=== PATIENT | male | born 1965 | race Caucasian/White ===

== ENCOUNTER 2022-05-08 09:18 | Emergency (ER) | payer MEDICAID, OTHER ==
[~2022-05-08] VITALS: Ht 182.9 cm; Wt 83.9 kg
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
[2022-05-08] MEDS ORDERED: ZONI100C79 PO (09:53)
[2022-05-08 09:58] VITALS: BP 127/72
== END 2022-05-08 09:58 | disposition home or self-care (01) ==
LOC: ER FS 09:21
DX: Z76.0 Encounter for issue of repeat prescription (principal)
CPT/HCPCS: 99281

== ENCOUNTER 2022-07-28 16:57 | Emergency (ER) | payer MEDICAID ==
[~2022-07-28] VITALS: Ht 182 cm; Wt 83.0 kg
[~2022-07-28 16:57] MED LIST: ZONI100C79 PO
[2022-07-28] MEDS ORDERED: cefTRIAXone 250 MG/2.5 ML ML IM ONE (17:45)
[2022-07-28] MEDS ORDERED: LIDOCAINE 1% INJ 20 ML VIAL INJ ONE (17:45)
[2022-07-28] MEDS ORDERED: LIDOCAINE 1% INJ 10 ML VIAL ONE (17:45)
[2022-07-28] MEDS ORDERED: AZITHROMYCIN 250 MG TAB (ZITHROMAX) PO ONE (17:46)
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
[2022-07-28 17:58] LABS: BILIRUBIN,URINE NEGATIVE (NEGATIVE); CLARITY,URINE CLEAR; COLOR,URINE YELLOW; GLUCOSE, URINE (UA) NEGATIVE (NEGATIVE); KETONES,URINE NEGATIVE (NEGATIVE); LEUKOCYTE ESTERASE ,URINE TRACE (NEGATIVE); NITRITE,URINE NEGATIVE (NEGATIVE); PROTEIN,URINE NEGATIVE (NEGATIVE)
[2022-07-28] MEDS ORDERED: LIDOCAINE 1% INJ 10 ML VIAL INJ ONE (18:00)
[2022-07-28 18:09] LABS: BACTERIA,URINE TRACE /HPF; WBC,URINE 0-2 /HPF
[2022-07-28 18:40] VITALS: BP 122/84
[2022-07-29] MEDS ORDERED: AZITHROMYCIN 250 MG TAB (ZITHROMAX) PO SCH (09:00)
== END 2022-07-28 18:40 | disposition home or self-care (01) ==
LOC: EDUNIT# 16:57 → ER 17:00
DX: L30.9 Dermatitis, unspecified (principal); N34.2 Other urethritis; F41.9 Anxiety disorder, unspecified; Z28.310 Unvaccinated for COVID-19
CPT/HCPCS: 36415; 81000; 87491; 87591; 99284

== ENCOUNTER 2022-09-20 14:04 | Emergency (ER) | payer MEDICAID ==
[~2022-09-20] VITALS: Ht 182.9 cm; Wt 95.0 kg
[2022-09-20] MEDS ORDERED: NEOMY/POLYM/HC (CORTISPORIN) 10 ML BTL LEFT EAR STA (15:06)
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
--- NOTE | 2022-09-20 15:47 | Diagnostic Imaging Report ---
TIBIA/FIBULA, RIGHT, 2 VIEWS INDICATION: Calf pain. COMPARISON: None available. TECHNIQUE: Two views of the right tibia and fibula. FINDINGS: No radiopaque foreign body. Prior ACL reconstruction with a tunnel in the proximal tibia. No acute fracture. IMPRESSION: No radiopaque foreign body or soft tissue gas. Dictated by: Dictated on workstation # [id number]
[2022-09-20 16:06] VITALS: BP 103/68
== END 2022-09-20 16:06 | disposition home or self-care (01) ==
LOC: EDUNIT# 14:04 → ER 14:06
DX: M79.661 Pain in right lower leg (principal); H60.92 Unspecified otitis externa, left ear; Z28.310 Unvaccinated for COVID-19; Z59.00 Homelessness unspecified
CPT/HCPCS: 73590

== ENCOUNTER 2023-03-03 16:52 | Emergency (ER) | payer MEDICAID ==
[~2023-03-03] VITALS: Ht 182.5 cm; Wt 104.3 kg
--- NOTE | 2023-03-03 18:08 | ED EENT ---
History of Present Illness General Chief Complaint: Eye Problems Stated Complaint: LEFT EYE INFECTION Nursing Triage Note: PT AMB TO TRIAGE WITH COMPLAINT OF LEFT EYE ITCHINESS AND LOSS OF VISION. STATES HAS BEEN GOING ON FOR A WHILE, BUT WORSENED YESTERDAY. Source: patient Exam Limitations: no limitations (KYLIE VEGA) History of Present Illness Date Seen by Provider: Mar 03, 2023 Time Seen by Provider: 18:05 Initial Comments Patient is a 57-year-old male who presents to ED for eye itchiness and changes in vision. Patient states he has had bilateral eye itching but more notable of the left eye. He states he feels like his eyes are bloodshot. He states over the past few days he has noticed a white fog in both eyes but appears to be worse in the left eye. He notices this when he reads or looks at words. Describes as more blurry vision. Denies complete loss of vision. Intermittent headache over the past 2 days. Denies pain with eye movement or photophobia. Denies of any eye drainage. Has been using warm compresses. He states he had similar symptoms about 8 months ago was given a antibiotic eye ointment without much improvement. Patient denies fever, chills, chest pain, cough, shortness of breath. Patient does wear glasses. Patient denies floaters in his vision. Denies flashing light. (KYLIE VEGA) Allergies and Home Medications Allergies Coded Allergies: No Known Drug Allergies (Unverified , 07/28/22) Patient Home Medication List Home Medication List Reviewed: Yes (KYLIE VEGA) Zonisamide (Zonisamide) 100 Mg Capsule, 100 MG PO DAILY Prescribed by: JYOTI MIRANDA on 05/08/22 0953 Review of Systems Review of Systems Constitutional: No see HPI, No chills Eyes: Blurred Vision; Denies Pain, Denies Photophobia, Denies Previous Injury, Denies Shadows Ears: Denies Dizziness, Denies Pain Nose: denies clots, denies congestion Mouth: denies clots, denies loose teeth Throat: denies swelling, denies discharge Respiratory: No cough, No dyspnea on exertion Gastrointestinal: No abdominal pain, No diarrhea, No nausea, No vomiting Musculoskeletal: No back pain, No joint pain, No joint swelling, No muscle pain Skin: No change in color, No change in hair/nails Neurological: Denies Anxiety, Denies Depressed (KYLIE VEGA) Past Vcmclur-Pugauu-Hqpstv Hx Patient Social History Tobacco Use?: No Use of E-Cig and/or Vaping dev: No Substance use?: No Alcohol Use?: No Pt feels they are or have been: No (KYLIE VEGA) Past Medical History Surgery/Hospitalization HX: SEIZURE DISORDER, R ACL REPAIR (KYLIE VEGA) Physical Exam Vital Signs Vital Signs - First Documented 03/03/23 17:03 Temp 36.7 Pulse 77 Resp 16 B/P (MAP) 146/72 (96) Pulse Ox 95 O2 Delivery Room Air (MOLLY OMER DO) Height, Weight, BMI Height: '" Weight: lbs. oz. kg; 31.00 BMI Method: General Appearance: WD/WN, no apparent distress Eyes: bilateral eye normal inspection, bilateral eye PERRL, bilateral eye EOMI Ears: bilateral ear auricle normal, bilateral ear canal normal, bilateral ear TM normal Nose: normal inspection Mouth/Throat: normal mouth inspection, pharynx normal, dental tenderness Cardiovascular: regular rate, rhythm, no edema, no gallop Neurologic/Psychiatric: secondary social studies teacher II-XII nml as tested, no motor/sensory deficits, alert, normal mood/affect, oriented x 3 Skin: normal color, warm/dry (KYLIE VEGA) Progress/Results/Core Measures Results/Orders Lab Results Laboratory Tests Test 03/03/23 18:34 Range/Units White Blood Count 5.9 4.3-11.0 10^3/uL Red Blood Count 5.02 4.30-5.52 10^6/uL Hemoglobin 15.2 13.3-17.7 g/dL Hematocrit 43 40-54 % Mean Corpuscular Volume 86 80-99 fL Mean Corpuscular Hemoglobin 30 25-34 pg Mean Corpuscular Hemoglobin Concent 35 32-36 g/dL Red Cell Distribution Width 12.4 10.0-14.5 % Platelet Count 241 130-400 10^3/uL Mean Platelet Volume 8.9 L 9.0-12.2 fL Immature Granulocyte % (Auto) 0 % Neutrophils (%) (Auto) 49 42-75 % Lymphocytes (%) (Auto) 39 12-44 % Monocytes (%) (Auto) 11 0-12 % Eosinophils (%) (Auto) 1 0-10 % Basophils (%) (Auto) 1 0-10 % Neutrophils # (Auto) 2.9 1.8-7.8 10^3/uL Lymphocytes # (Auto) 2.3 1.0-4.0 10^3/uL Monocytes # (Auto) 0.6 0.0-1.0 10^3/uL Eosinophils # (Auto) 0.0 0.0-0.3 10^3/uL Basophils # (Auto) 0.0 0.0-0.1 10^3/uL Immature Granulocyte # (Auto) 0.0 0.0-0.1 10^3/uL Erythrocyte Sedimentation Rate 7 0-30 MM/HR Sodium Level 139 135-145 MMOL/L Potassium Level 3.8 3.6-5.0 MMOL/L Chloride Level 106 98-107 MMOL/L Carbon Dioxide Level 22 21-32 MMOL/L Anion Gap 11 5-14 MMOL/L Blood Urea Nitrogen 16 7-18 MG/DL Creatinine 1.29 0.60-1.30 MG/DL Estimat Glomerular Filtration Rate 64 BUN/Creatinine Ratio 12 Glucose Level 107 H 70-105 MG/DL Calcium Level 9.6 8.5-10.1 MG/DL Corrected Calcium 9.3 8.5-10.1 MG/DL Total Bilirubin 0.3 0.1-1.0 MG/DL Aspartate Amino Transf (AST/SGOT) 34 5-34 U/L Alanine Aminotransferase (ALT/SGPT) 49 0-55 U/L Alkaline Phosphatase 74 40-136 U/L C-Reactive Protein High Sensitivity 0.08 0.00-0.50 MG/DL Total Protein 7.9 6.4-8.2 GM/DL Albumin 4.4 3.2-4.5 GM/DL (KAN,MOLLY Cara DO) Medications Given in ED Current Medications Medications Dose Ordered Sig/[place] Route Start Time Stop Time Status Last Admin Dose Admin Tetracaine HCl 1 OR 2 DROPS INTO AFFEC... ONCE ONCE OP 03/03/23 19:15 03/03/23 19:16 DC 03/03/23 19:17 4 ML Tobramycin Sulfate 1 ml ONCE ONCE OU 03/03/23 20:00 03/03/23 20:01 DC 03/03/23 20:02 1 ML (MOLLY OMER DO) Vital Signs/I&O 03/03/23 20:03 Temp 36.4 Pulse 71 Resp 16 B/P (MAP) 139/69 Pulse Ox 97 O2 Delivery Room Air (MOLLY OMER DO) Blood Pressure Mean: 96 Departure Communication (PCP) Reviewed previous ER visits, H&P, lab testing. Complaining of blurry vision left eye. Believe this started today. Denies loss of vision. States today he was reading something on a wall states smaller words look like symbols. Larger words he was able to make out. He states this is fairly new however unclear if this has been over the past week and a half or new today. Difficulty finding exactly what day and when everything started. States his eyes have been itching for the past week and a half. Worse the left eye. Over the past 3 to 4 days reports foggy vision in the left eye. Denies of any double vision, halos, sensitivity to light or trauma to the eye. No history of hypertension, diabetes. Denies of any drainage of the eye. He is concern for infectious, viral versus parasite. On exam there is no evidence of erythematous injection. No drainage. extraocular movements intact. Pupils reactive to light. No periorbital swelling or erythema. He does report some intermittent headache. No cardiac or stroke risk factors. Due to the change in vision of the left eye CT scan of the head to rule out stroke or mass. CT scan was unremarkable. Ocular pressure left eye 15 average, ocular pressure right eye 17 average. 20/70 left eye, 20/25 right eye. Does wear reading glasses. Blurry Vision with close objects (words) as well as far close objects (words). basic lab work CBC, CMP, ESR and CRP was ordered. No history of autoimmune diseases. Presentation does not appear related to CRVO or central retinal artery occlusion due to no sudden vision loss. Patient was discussed with Dr. Morales seasoning mixer. Recommended starting tobramycin. Potentially cataract however did recommend following up Monday 8:30 in the morning. He did state that if patient has any acute changes such as vision loss to contact him directly and to follow- up in the office or return back to ED. Did not seem concerned for anything needing emergent evaluation which I do agree. Will discharge with tobramycin. He states he had similar episode about 8 months ago and was treated with antibiotics with improvement. Discussed potential allergies with itching. Denies any hitting his eyes, however with the left-sided visual changes would be of concern. Recommend furthur work up (KYLIE VEGA) Impression Primary Impression: Eye infection Disposition: HOME, SELF-CARE Condition: Stable Departure-Patient Inst. Decision time for Depature: 19:57 (KYLIE VEGA) Referrals: [facility]LOCAL PHYSICIAN (PCP) Primary Care Physician Patient Instructions: Conjunctivitis (Pinkeye) (DC) Add. Discharge Instructions: Recommend following up with [facility] at 830 next Monday. His #[phone] for any acute changes. Take antibiotics as prescribed. All discharge instructions reviewed with patient and/or family. Voiced unde rstanding. ATTENDING PHYSICIAN NOTE: I WAS PHYSICALLY PRESENT ER PHYSICIAN, BUT I WAS NOT INVOLVED IN ANY DECISION MAKING OR ANY CARE OF THIS PATIENT AND I AM NOT COLLABORATING PHYSICIAN. (MOLLY OMER DO) KYLIE VEGA Mar 03, 2023 18:08 MOLLY OMER DO Mar 04, 2023 07:06
[2023-03-03 18:39] LABS: BASOPHILS % (AUTO) 1 % (0-10); EOSINOPHILS % (AUTO) 1 % (0-10); HEMATOCRIT 43 % (40-54); HEMOGLOBIN 15.2 g/dL (13.3-17.7); LYMPHOCYTES # (AUTO) 2.3 10^3/uL (1.0-4.0); LYMPHOCYTES % (AUTO) 39 % (12-44); MEAN CORPUSCULAR HEMOGLOBIN 30 pg (25-34); MEAN CORPUSCULAR HGB CONC 35 g/dL (32-36); MEAN CORPUSCULAR VOLUME 86 fL (80-99); MEAN PLATELET VOLUME 8.9 fL (9.0-12.2); MONOCYTES # (AUTO) 0.6 10^3/uL (0.0-1.0); MONOCYTES % (AUTO) 11 % (0-12); NEUTROPHILS # (AUTO) 2.9 10^3/uL (1.8-7.8); NEUTROPHILS % (AUTO) 49 % (42-75); PLATELET COUNT 241 10^3/uL (130-400); WHITE BLOOD COUNT 5.9 10^3/uL (4.3-11.0)
--- NOTE | 2023-03-03 18:43 | Diagnostic Imaging Report ---
PROCEDURE: CT head without contrast. TECHNIQUE: Multiple contiguous axial images were obtained through the brain without the use of intravenous contrast. Auto Exposure Controls were utilized during the CT exam to meet ALARA standards for radiation dose reduction. INDICATION: Headache COMPARISON: None FINDINGS: The brain parenchyma is normal in attenuation. No intra- or extra-axial mass or fluid collection. No acute hemorrhage. The ventricles are normal in size, shape, and morphology. The ruff-white matter junction is normal. The subarachnoid cisterns are patent. The visualized paranasal sinuses are normal. The visualized portions of the orbits and globes are normal. The mastoid air cells are clear. The parts facilitator topogram shows no lytic lesion or fracture. Impression: No acute intracranial process. Dictated by: Dictated on workstation # [id number]
[2023-03-03 18:48] LABS: ALBUMIN 4.4 GM/DL (3.2-4.5)
[2023-03-03 18:49] LABS: POTASSIUM 3.8 MMOL/L (3.6-5.0)
[2023-03-03 18:50] LABS: CALCIUM 9.6 MG/DL (8.5-10.1)
[2023-03-03 18:51] LABS: TOTAL PROTEIN 7.9 GM/DL (6.4-8.2)
[2023-03-03 18:53] LABS: BILIRUBIN,TOTAL 0.3 MG/DL (0.1-1.0)
[2023-03-03 18:55] LABS: CREATININE SERUM 1.29 MG/DL (0.60-1.30)
[2023-03-03 19:02] LABS: ERYTHROCYTE SEDIMENTATION RATE 7 MM/HR (0-30)
[2023-03-03] MEDS ORDERED: TETRACAINE 0.5% OPHTH SOLN 4 ML BTL (SINGLE DOSE ONLY) OP ONE (19:15)
[2023-03-03] MEDS ORDERED: RX-TOBRAMYCIN 0.3% OPHTH (TOBREX) SOLN 5 ML BTL OU ONE (20:00)
[2023-03-03 20:03] VITALS: BP 139/69
== END 2023-03-03 20:04 | disposition home or self-care (01) ==
LOC: EDUNIT# 16:52 → ER 16:54
DX: H44.002 Unspecified purulent endophthalmitis, left eye (principal)
CPT/HCPCS: 36415; 70450; 80053; 85025; 85652; 86141

== ENCOUNTER 2023-05-05 15:13 | Emergency (ER) | payer MEDICAID ==
[~2023-05-05] VITALS: Ht 182 cm; Wt 115.0 kg
[2023-05-05 15:52] LABS: BASOPHILS % (AUTO) 1 % (0-10); EOSINOPHILS # (AUTO) 0.1 10^3/uL (0.0-0.3); EOSINOPHILS % (AUTO) 1 % (0-10); HEMATOCRIT 47 % (40-54); HEMOGLOBIN 16.7 g/dL (13.3-17.7); LYMPHOCYTES # (AUTO) 2.1 X 10^3 (1.0-4.0); LYMPHOCYTES % (AUTO) 34 % (12-44); MEAN CORPUSCULAR HEMOGLOBIN 30 pg (25-34); MEAN CORPUSCULAR HGB CONC 36 g/dL (32-36); MEAN CORPUSCULAR VOLUME 85 fL (80-99); MONOCYTES # (AUTO) 0.5 X 10^3 (0.0-1.0); MONOCYTES % (AUTO) 8 % (0-12); NEUTROPHILS # (AUTO) 3.5 X 10^3 (1.8-7.8); NEUTROPHILS % (AUTO) 57 % (42-75); PLATELET COUNT 262 10^3/uL (130-400); WHITE BLOOD COUNT 6.1 10^3/uL (4.3-11.0)
[2023-05-05 15:57] LABS: ALBUMIN 4.9 GM/DL (3.2-4.5); CHLORIDE 106 MMOL/L (98-107); POTASSIUM 4.1 MMOL/L (3.6-5.0); SODIUM 138 MMOL/L (135-145)
[2023-05-05 15:58] LABS: CALCIUM 9.9 MG/DL (8.5-10.1)
[2023-05-05 15:59] LABS: GLUCOSE 99 MG/DL (70-105); TOTAL PROTEIN 8.5 GM/DL (6.4-8.2)
[2023-05-05] MEDS ORDERED: KETOROLAC 15 MG/ML VIAL IVP ONE (16:00)
[2023-05-05 16:01] LABS: BILIRUBIN,TOTAL 0.7 MG/DL (0.1-1.0); CARBON DIOXIDE 19 MMOL/L (21-32)
[2023-05-05 16:03] LABS: ALKALINE PHOSPHATASE 90 U/L (40-136); CREATININE SERUM 1.76 MG/DL (0.60-1.30); GFR ESTIMATED 44
[2023-05-05 16:04] LABS: BUN/CREATININE RATIO 7
[2023-05-05 16:06] LABS: ALANINE AMINOTRANSFERASE 58 U/L (0-55); LIPASE 96 U/L (8-78)
[2023-05-05 16:16] LABS: BILIRUBIN,URINE NEGATIVE (NEGATIVE); CLARITY,URINE CLEAR; COLOR,URINE YELLOW; GLUCOSE, URINE (UA) NEGATIVE (NEGATIVE); KETONES,URINE NEGATIVE (NEGATIVE); LEUKOCYTE ESTERASE ,URINE NEGATIVE (NEGATIVE); NITRITE,URINE NEGATIVE (NEGATIVE); PH,URINE 5.5 (5-9); PROTEIN,URINE TRACE (NEGATIVE)
--- NOTE | 2023-05-05 16:25 | ED Abdominal Pain ---
General Chief Complaint: Abdominal/GI Problems Stated Complaint: ABD PAIN Nursing Triage Note: STATES HE WAS BENT OVER SNEEZING AND IMMEDIATLY STARTED HAVING LEFT UPPER ABD PAIN. Source of Information: Patient Exam Limitations: No Limitations History of Present Illness Date Seen by Provider: May 05, 2023 Time Seen by Provider: 15:35 Initial Comments 57-year-old male presents to the ER with complaints of left upper quadrant abdominal pain and swelling starting approximately 2 hours ago. He states that after eating, he bent over and was sneezing, this is when the pain came on suddenly. He states the pain now radiates outward. He states that he is currently having pain, but he states the pain is better. He feels as though there is a bubble in this location. He denies fevers, chest pain, nausea, vomiting, dysuria. He states that over the last 4 days he has had approximately 2 loose stools each day. He does report some shortness of air since the pain started. Past medical history includes seizures, he currently takes Keppra. Denies any abdominal surgeries. Allergies and Home Medications Allergies Coded Allergies: No Known Drug Allergies (Unverified , 07/28/22) Patient Home Medication List Home Medication List Reviewed: Yes Zonisamide (Zonisamide) 100 Mg Capsule, 100 MG PO DAILY Prescribed by: JYOTI MIRANDA on 05/08/22 0953 Review of Systems Review of Systems Constitutional: see HPI Past Sclkynq-Tmhkzy-Lxhkwo Hx Patient Social History Tobacco Use?: No Substance use?: No Alcohol Use?: No Past Medical History Surgery/Hospitalization HX: SEIZURE DISORDER, R ACL REPAIR Physical Exam Vital Signs Vital Signs - First Documented 05/05/23 15:15 Temp 36.8 Pulse 87 Resp 16 B/P (MAP) 131/92 (105) Pulse Ox 96 O2 Delivery Room Air Capillary Refill : Less Than 3 Seconds Height/Weight/BMI Height: '" Weight: lbs. oz. kg; 34.00 BMI Method: General Appearance: WD/WN, no apparent distress Neck: supple Respiratory: chest non-tender (No tenderness over left lower ribs), lungs clear, normal breath sounds, no respiratory distress, no accessory muscle use Cardiovascular: regular rate, rhythm Gastrointestinal: normal bowel sounds, soft, tenderness (Mild point tenderness in left upper quadrant), other (Small area of swelling in the left upper quadrant at location of pain) Extremities: normal range of motion, normal inspection Neurologic/Psychiatric: alert, normal mood/affect Skin: normal color, warm/dry Progress/Results/Core Measures Results/Orders Lab Results Laboratory Tests Test 05/05/23 15:30 05/05/23 16:05 Range/Units White Blood Count 6.1 4.3-11.0 10^3/uL Red Blood Count 5.55 H 4.30-5.52 10^6/uL Hemoglobin 16.7 13.3-17.7 g/dL Hematocrit 47 40-54 % Mean Corpuscular Volume 85 80-99 fL Mean Corpuscular Hemoglobin 30 25-34 pg Mean Corpuscular Hemoglobin Concent 36 32-36 g/dL Red Cell Distribution Width 12.6 10.0-14.5 % Platelet Count 262 130-400 10^3/uL Mean Platelet Volume 9.0 9.0-12.2 fL Immature Granulocyte % (Auto) 0 % Neutrophils (%) (Auto) 57 42-75 % Lymphocytes (%) (Auto) 34 12-44 % Monocytes (%) (Auto) 8 0-12 % Eosinophils (%) (Auto) 1 0-10 % Basophils (%) (Auto) 1 0-10 % Neutrophils # (Auto) 3.5 1.8-7.8 X 10^3 Lymphocytes # (Auto) 2.1 1.0-4.0 X 10^3 Monocytes # (Auto) 0.5 0.0-1.0 X 10^3 Eosinophils # (Auto) 0.1 0.0-0.3 10^3/uL Basophils # (Auto) 0.0 0.0-0.1 10^3/uL Immature Granulocyte # (Auto) 0.0 0.0-0.1 10^3/uL Sodium Level 138 135-145 MMOL/L Potassium Level 4.1 3.6-5.0 MMOL/L Chloride Level 106 98-107 MMOL/L Carbon Dioxide Level 19 L 21-32 MMOL/L Anion Gap 13 5-14 MMOL/L Blood Urea Nitrogen 13 7-18 MG/DL Creatinine 1.76 H 0.60-1.30 MG/DL Estimat Glomerular Filtration Rate 44 BUN/Creatinine Ratio 7 Glucose Level 99 70-105 MG/DL Calcium Level 9.9 8.5-10.1 MG/DL Corrected Calcium 8.5-10.1 MG/DL Total Bilirubin 0.7 0.1-1.0 MG/DL Aspartate Amino Transf (AST/SGOT) 37 H 5-34 U/L Alanine Aminotransferase (ALT/SGPT) 58 H 0-55 U/L Alkaline Phosphatase 90 40-136 U/L Total Protein 8.5 H 6.4-8.2 GM/DL Albumin 4.9 H 3.2-4.5 GM/DL Lipase 96 H 8-78 U/L Urine Color YELLOW Urine Clarity CLEAR Urine pH 5.5 5-9 Urine Specific [place] >=1.030 1.016-1.022 Urine Protein TRACE H NEGATIVE Urine Glucose (UA) NEGATIVE NEGATIVE Urine Ketones NEGATIVE NEGATIVE Urine Nitrite NEGATIVE NEGATIVE Urine Bilirubin NEGATIVE NEGATIVE Urine Urobilinogen 1.0 < = 1.0 MG/DL Urine Leukocyte Esterase NEGATIVE NEGATIVE Urine RBC (Auto) NEGATIVE NEGATIVE Urine RBC RARE /HPF Urine WBC 0-2 /HPF Urine Squamous Epithelial Cells 0-2 /HPF Urine Crystals PRESENT H /LPF Urine Calcium Oxalate Crystals FEW H /LPF Urine Amorphous Sediment FEW ALEC URATES H /LPF Urine Bacteria TRACE /HPF Urine Casts PRESENT /LPF Urine Hyaline Casts 10-25 H /LPF Urine Mucus LARGE H /LPF Urine Culture Indicated NO My Orders Orders - KENDY YEBOAH APRN Comprehensive Metabolic Panel (05/05/23 15:46) Lipase (05/05/23 15:46) Ua Culture If Indicated (05/05/23 15:46) Cbc With Automated Diff (05/05/23 15:46) Ct Abdomen/Pelvis W (05/05/23 15:46) Chest Pa/Lat (2 View) (05/05/23 15:46) Ketorolac Injection (Toradol Injection) (05/05/23 16:00) Ed Iv/Invasive Line Start (05/05/23 16:16) Ns Iv 1000 Ml (Sodium Chloride 0.9%) (05/05/23 16:30) Iohexol Injection (Omnipaque 350 Mg/Ml 1 (05/05/23 16:30) Received Contrast (Hold Metformin- Contr (05/05/23 16:30) Ns (Ivpb) (Sodium Chloride 0.9% Ivpb Bag (05/05/23 16:30) Medications Given in ED Current Medications Medications Dose Ordered Sig/[place] Route Start Time Stop Time Status Last Admin Dose Admin Iohexol 100 ml ONCE ONCE IV 05/05/23 16:30 05/05/23 16:31 DC 05/05/23 16:30 80 ML Ketorolac Tromethamine 15 mg ONCE ONCE IVP 05/05/23 16:00 05/05/23 16:01 DC 05/05/23 15:54 15 MG Sodium Chloride 100 ml ONCE ONCE IV 05/05/23 16:30 05/05/23 16:31 DC 05/05/23 16:30 80 ML Vital Signs/I&O 05/05/23 05/05/23 15:15 17:57 Temp 36.8 Pulse 87 71 Resp 16 16 B/P (MAP) 131/92 (105) 117/83 Pulse Ox 96 95 O2 Delivery Room Air Room Air Blood Pressure Mean: 105 Progress Progress Note : Progress Note Patient seen and evaluated, resting comfortably in bed, no acute distress. Based on exam and symptoms, differential diagnosis includes but is not limited to abdominal wall pain or muscular injury, hernia, gastritis, pancreatitis, other intra-abdominal pathology. Work-up initiated including CBC, CMP, lipase, UA, CT abdomen pelvis, chest x-ray. 1620 Labs reviewed. CBC grossly normal. CMP shows slightly decreased CO2 19, elevated creatinine 1.76, decreased GFR 44, normal BUN 13, slightly elevated AST 37, slightly elevated ALT 58, total protein slightly elevated 8.5, albumin slightly elevated 4.9. Lipase slightly elevated 96. Previous labs on 03/03/2023 showed creatinine of 1.29 and GFR of 64. Liter of IV fluids ordered. Although lipase is slightly elevated, I do not think this is pancreatitis. 1734 imaging reviewed. Chest x-ray and abdominal CT shows no acute abnormality. Results discussed with patient. I believe this is a pulled muscle. Instructed patient to apply ice for 20 minutes at a time several times a day and to take 800 mg of ibuprofen every 8 hours with food as needed for pain. Return precautions provided. Departure Impression Primary Impression: Abdominal wall pain Additional Impression: Acute kidney injury Disposition: HOME, SELF-CARE Condition: Stable Departure-Patient Inst. Decision time for Depature: 17:36 Referrals: NO,LOCAL PHYSICIAN (PCP/Family) Primary Care Physician Patient Instructions: Abdominal Muscle Strain Add. Discharge Instructions: Follow-up with your primary care provider for this pain if it continues. Apply ice packs to the area for 20 minutes at a time several times a day for the next couple of days. Take 800 mg of ibuprofen with food every 8 hours as needed for pain and inflammation. Make sure you are drinking plenty of water. Follow-up with your primary care provider regarding your decreased kidney function. Return for any other new, concerning, or worsening symptoms. All discharge instructions reviewed with patient and/or family. Voiced understanding. KENDY YEBOAH APRN May 05, 2023 16:25
[2023-05-05] MEDS ORDERED: IOHEXOL 350 MG/ML 100 ML (OMNIPAQUE 350) VIAL IV ONE (16:30)
[2023-05-05] MEDS ORDERED: HOLD METFORMIN - RECEIVED CONTRAST 20 ML VIAL IV SCH (16:30)
[2023-05-05] MEDS ORDERED: NS 100 ML (IVPB) BAG IV ONE (16:30)
[2023-05-05] MEDS ORDERED: NS IV 1000 ML 1,000 ML IV SCH (16:30)
[2023-05-05 16:34] LABS: BACTERIA,URINE TRACE /HPF; RBC,URINE RARE /HPF; WBC,URINE 0-2 /HPF
[2023-05-05 16:35] LABS: AMORPHOUS SEDIMENT,UR FEW AMOR URATES /LPF; CALCIUM OXALATE CRYSTALS,UR FEW /LPF; SQUAMOUS EPITHELIAL CELL,UR 0-2 /HPF
--- NOTE | 2023-05-05 16:43 | Diagnostic Imaging Report ---
CLINICAL INDICATION: Patient bent over sneezing and immediately started having left upper abdominal pain. EXAM: Chest x-ray, PA and lateral views. COMPARISON: Chest x-ray dated 04/26/2017. FINDINGS: Lungs/pleura: Lungs are clear. There is no pneumothorax. There is no pleural effusion. Mediastinum: Unremarkable. Pulmonary vasculature: Unremarkable. Heart: Unremarkable. Bones/extrathoracic soft tissue: Unremarkable. IMPRESSION: There is no radiographic evidence of acute cardiopulmonary process. Dictated by: Dictated on workstation # [id number]
--- NOTE | 2023-05-05 16:47 | Diagnostic Imaging Report ---
PROCEDURE: CT abdomen and pelvis with contrast. TECHNIQUE: Multiple contiguous axial images were obtained through the abdomen and pelvis after administration of intravenous contrast. Auto Exposure Controls were utilized during the CT exam to meet ALARA standards for radiation dose reduction. All CT scans use one or more of the following dose optimizing techniques: automated exposure control, MA and/or KvP adjustment based on patient size and exam type or iterative reconstruction. INDICATION: Left upper quadrant pain after a sneezing fit. FINDINGS: The lung bases clear, no basilar pleural fluid or pneumothorax. The visible lower rib segments showed no fracture or acute abnormality. Nonfocal spleen is normal in size. The pancreas is negative. The gallbladder contracted. No visible stone. The liver nonacute. No bile duct dilatation. There is no hydroureteronephrosis. No radiodense urinary tract calculi. The adrenals and pancreas negative. The aorta is patent, nonaneurysmal and nonacute. There is an air-containing normal appendix. There is no diverticulitis. There is no small or large bowel obstruction. No pneumatosis or free gas. No bowel wall thickening. No perienteric or pericolonic edema. There is no intra or extraperitoneal hemorrhage, no fluid collection. The anterior abdominal wall is intact, no rectus sheath collection. IMPRESSION: No acute-appearing abnormality. No findings to explain the presenting complaint of left-sided pain following sneezing. Dictated by: Dictated on workstation # [id number]
[2023-05-05 17:57] VITALS: BP 117/83
== END 2023-05-05 17:57 | disposition home or self-care (01) ==
LOC: EDUNIT# 15:13 → ER 15:14
DX: R10.12 Left upper quadrant pain (principal); N17.9 Acute kidney failure, unspecified; R79.81 Abnormal blood-gas level; R74.01 Elevation of levels of liver transaminase levels; R74.8 Abnormal levels of other serum enzymes; G40.909 Epilepsy, unspecified, not intractable, without status epilepticus; Z79.899 Other long term (current) drug therapy; Z28.310 Unvaccinated for COVID-19
CPT/HCPCS: 36415; 71046; 74177; 80053; 81000; 83690; 85025

== ENCOUNTER 2023-06-18 19:13 | Emergency (ER) | payer MEDICAID ==
[2023-06-18] MEDS ORDERED: cefTRIAXone 1,000 MG VIAL IV/IM IM STA (19:33)
[2023-06-18] MEDS ORDERED: LIDOCAINE 1% INJ 20 ML VIAL INJ STA (19:33)
[2023-06-18] MEDS ORDERED: KETOROLAC INJ 60 MG/2 ML VIAL IM STA (19:33)
[2023-06-18] MEDS ORDERED: AMOX1TAB12 PO (19:41)
[2023-06-18] MEDS ORDERED: IBUP-1780 PO (19:41)
[2023-06-18] MEDS ORDERED: ACHD5005 PO (19:41)
--- NOTE | 2023-06-18 19:41 | ED EENT ---
History of Present Illness General Chief Complaint: Dental Problems/Pain Stated Complaint: TOOTH PAIN Nursing Triage Note: Pt complaining of left lower dental pain Source: patient History of Present Illness Date Seen by Provider: Jun 18, 2023 Time Seen by Provider: 19:16 Initial Comments 57-year-old male presenting with complaints of left-sided headache, dry eyes, pain and swelling to the left lower jaw. He has a tooth that has decay that can be seen around the gumline. He has had a previous root canal and has a cap on it. He denies any direct trauma to it. He has had increasing pain over the last 3 to 4 days. He has also had some subjective fever and chills. He has had prior similar symptoms on the right side with a bad tooth. He is seeing a dentist and had several teeth removed due to this in the past. Most recently was about 10 months prior. Timing/Duration: gradual Severity: severe Location: facial, dental Prearrival Treatment: over the counter meds Modifying Factors: Worse With Other (Eating and drinking) Associated Symptoms: No change in hearing, No cough, No drooling, No ear drainage; facial pain/swelling, fever (Subjective), malaise; No nasal congestion/drainage, No poor fluid intake, No poor solids intake, No sinus infection, No sore throat; tooth pain; No voice change Allergies and Home Medications Allergies Coded Allergies: No Known Drug Allergies (Unverified , 07/28/22) Patient Home Medication List Home Medication List Reviewed: Yes Amoxicillin/Potassium Clav (Amox Tr-K Clv 875-125 mg Tab) 875 Mg-125 Mg Tablet, 1 EACH PO BID Prescribed by: MURRAY LEAVITT on 06/18/231940 Hydrocodone/Acetaminophen (Hydrocodone-Acetamin 5-325 mg) 5 Mg-325 Mg Tablet, 1 TAB PO Q6H PRN for PAIN SEVERE Prescribed by: MRURAY LEAVITT on 06/18/231940 Ibuprofen (Ibuprofen) 800 Mg Tablet, 800 MG PO Q8H PRN for PAIN Prescribed by: MURRAY LEAVITT on 06/18/231940 Zonisamide (Zonisamide) 100 Mg Capsule, 100 MG PO DAILY Prescribed by: JYOTI MIRANDA on 05/08/22 0953 Review of Systems Review of Systems Constitutional: chills, fever (Subjective) Eyes: See HPI (Complains of dry eyes and needing to wipe his eyes frequently.) Ears: No Symptoms Reported Nose: no symptoms reported Mouth: see HPI Throat: no symptoms reported Respiratory: no symptoms reported Cardiovascular: no symptoms reported Gastrointestinal: no symptoms reported Musculoskeletal: no symptoms reported Skin: no symptoms reported Neurological: Anxiety, Headache Past Gpytlhq-Nchpga-Rybcwb Hx Past Medical History Surgery/Hospitalization HX: SEIZURE DISORDER, R ACL REPAIR Physical Exam Vital Signs Vital Signs - First Documented 06/18/23 19:18 Pulse 83 Resp 18 B/P (MAP) 197/101 (133) Pulse Ox 96 O2 Delivery Room Air Height, Weight, BMI Height: '" Weight: lbs. oz. kg; 34.00 BMI Method: General Appearance: WD/WN, no apparent distress Eyes: bilateral eye PERRL, bilateral eye EOMI Mouth/Throat: pharynx normal, dental tenderness (Erythema and swelling to the gums on the left lower mandible and a tender to palpation posterior tooth on the left lower mandible) Cardiovascular: normal peripheral pulses, regular rate, rhythm Respiratory: chest non-tender, lungs clear, normal breath sounds Neurologic/Psychiatric: alert, oriented x 3 Skin: normal color, warm/dry Progress/Results/Core Measures Results/Orders My Orders Orders - MURRAY LEAVITT MD Ketorolac Injection (Ketorolac Injection (06/18/23 19:33) Rx-Hydrocodone/Apap 5-325 Mg (Rx-Vicodin (06/18/23 19:45) Ceftriaxone Iv/Im (Ceftriaxone Iv/Im) (06/18/23 19:33) Lidocaine 1% Inj 20 Ml (Xylocaine 1% Inj (06/18/23 19:33) Medications Given in ED Current Medications Medications Dose Ordered Sig/[place] Route Start Time Stop Time Status Last Admin Dose Admin Acetaminophen/ Hydrocodone Bitart 1 ea Q6H PRN PO 06/18/23 19:45 06/18/23 19:41 1 EA Vital Signs/I&O 06/18/23 19:18 Pulse 83 Resp 18 B/P (MAP) 197/101 (133) Pulse Ox 96 O2 Delivery Room Air Blood Pressure Mean: 133 Progress Progress Note : Progress Note Will start patient on antibiotics with Rocephin 1 g IM shot here as well as Toradol 60 mg IM to try and help with pain. Sent with a take-home pack of hydrocodone/acetaminophen 5/325 mg 1 p.o. every 6 hours as needed severe pain. Prescription to continue Augmentin 875 twice daily x10 days to the pharmacy in addition to a few more pills of hydrocodone for severe pain. Counseled to follow-up with a dentist as soon as possible. Departure Impression Primary Impression: Pain due to dental caries Disposition: HOME, SELF-CARE Condition: Stable Departure-Patient Inst. Decision time for Depature: 19:39 Referrals: NO,LOCAL PHYSICIAN (PCP) Primary Care Physician [facility] Patient Instructions: Tooth Decay ED, Dental Pain ED Add. Discharge Instructions: Take full course of antibiotics to treat for infection. Use the ibuprofen to help with pain and inflammation. Use the hydrocodone/acetaminophen 1 pill every 6 hours as needed for severe pain. Follow-up with a dentist as soon as possible for definitive care. All discharge instructions reviewed with patient and/or family. Voiced understanding. Scripts Ibuprofen (Ibuprofen) 800 Mg Tablet 800 MG PO Q8H PRN for PAIN for 10 Days, #30 TAB 0 Refills Prov: MURRAY LEAVITT MD 06/18/23 Hydrocodone/Acetaminophen (Hydrocodone-Acetamin 5-325 mg) 5 Mg-325 Mg Tablet 1 TAB PO Q6H PRN for PAIN SEVERE for 3 Days, #12 TAB 0 Refills Prov: MURRAY LEAVITT MD 06/18/23 Amoxicillin/Potassium Clav (Amox Tr-K Clv 875-125 mg Tab) 875 Mg-125 Mg Tablet 1 EACH PO BID for dental infection for 10 Days, #20 TAB 0 Refills Prov: MURRAY LEAVITT MD 06/18/23 MURRAY LEAVITT MD Jun 18, 2023 19:41
[2023-06-18 19:45] VITALS: BP 197/101
== END 2023-06-18 19:46 | disposition home or self-care (01) ==
LOC: EDUNIT# 19:13 → ER FS 19:15
DX: K02.9 Dental caries, unspecified (principal); Z28.310 Unvaccinated for COVID-19
CPT/HCPCS: 99284

== ENCOUNTER 2023-06-25 23:30 | Emergency (ER) | payer MEDICAID ==
[~2023-06-25] VITALS: Ht 182.8 cm; Wt 105.0 kg
[~2023-06-25 23:30] MED LIST changes: +ACHD5005 PO; +AMOX1TAB12 PO; +IBUP-1780 PO
--- NOTE | 2023-06-25 23:41 | ED Chest Pain ---
General Stated Complaint: CHEST PAIN Source: patient, EMS Exam Limitations: no limitations History of Present Illness Date Seen by Provider: Jun 25, 2023 Time Seen by Provider: 23:33 Initial Comments 57-year-old male presents to the emergency department today for chest pain. He arrives via ambulance and tells me he has had the pain for about 4 days. He d escribes it as a pressure in his right chest sharp stabbing sensation in his left chest. It has been constant for the last 4 days with no obvious aggravating factors. It does seem to be better it when he is upright. He was seen in our emergency department a few days ago for dental pain. He was started on amoxicillin and hydrocodone. He states he stopped taking the hydrocodone 2 days after he was seen because the pain subsided. He denies any fevers chills cough. He was seen a little less than a month ago and [place] [facility] for left upper quadrant abdominal pain with a negative work-up at that time as well. No known cardiac history. He takes Keppra but no other medications. All other systems reviewed and negative except documented per HPI. Voice recognition software was used to help create this chart Allergies and Home Medications Allergies Coded Allergies: No Known Drug Allergies (Unverified , 07/28/22) Patient Home Medication List Home Medication List Reviewed: Yes Amoxicillin/Potassium Clav (Amox Tr-K Clv 875-125 mg Tab) 875 Mg-125 Mg Tablet, 1 EACH PO BID Prescribed by: MURRAY LEAVITT on 06/18/231940 Hydrocodone/Acetaminophen (Hydrocodone-Acetamin 5-325 mg) 5 Mg-325 Mg Tablet, 1 TAB PO Q6H PRN for PAIN SEVERE Prescribed by: MURRAY LEAVITT on 06/18/231940 Ibuprofen (Ibuprofen) 800 Mg Tablet, 800 MG PO Q8H PRN for PAIN Prescribed by: MURRAY LEAVITT on 06/18/231940 Zonisamide (Zonisamide) 100 Mg Capsule, 100 MG PO DAILY Prescribed by: JYOTI MIRANDA on 05/08/22 0953 Review of Systems Review of Systems Constitutional: see HPI Past Biolchu-Ubmtgn-Reenyb Hx Patient Social History Tobacco Use?: No Use of E-Cig and/or Vaping dev: No Substance use?: No Alcohol Use?: No Past Medical History Surgery/Hospitalization HX: SEIZURE DISORDER, R ACL REPAIR Physical Exam Vital Signs Vital Signs - First Documented 06/25/23 23:30 Temp 36.4 Pulse 68 Resp 20 B/P (MAP) 122/69 (86) Pulse Ox 98 O2 Delivery Nasal Cannula O2 Flow Rate 2.00 Capillary Refill : Height, Weight, BMI Height: '" Weight: lbs. oz. kg; 34.00 BMI Method: General Appearance: No Apparent Distress, WD/WN HEENT: PERRL/EOMI, Normal ENT Inspection, Pharynx Normal Neck: Full Range of Motion, Normal Inspection, Non Tender, Supple Respiratory: Lungs Clear, Normal Breath Sounds, No Accessory Muscle Use, No Respiratory Distress, Other (Tenderness palpation left anterior chest wall. No crepitus or deformity.) Cardiovascular: Regular Rate, Rhythm, No Murmur, Normal Peripheral Pulses Gastrointestinal: Normal Bowel Sounds, No Organomegaly, Soft, Tenderness (Mild tenderness in the epigastric region with voluntary guarding. No rebound tenderness. No mass organomegaly. No skin changes.) Extremity: Normal Capillary Refill, Normal Inspection, Non Tender, No Calf Tenderness, No Pedal Edema Neurologic/Psychiatric: Alert, Oriented x3 Skin: Normal Color, Warm/Dry Progress/Results/Core Measures Results/Orders Lab Results Laboratory Tests Test 06/25/23 23:35 Range/Units White Blood Count 7.1 4.3-11.0 10^3/uL Red Blood Count 5.06 4.30-5.52 10^6/uL Hemoglobin 15.1 13.3-17.7 g/dL Hematocrit 43 40-54 % Mean Corpuscular Volume 85 80-99 fL Mean Corpuscular Hemoglobin 30 25-34 pg Mean Corpuscular Hemoglobin Concent 35 32-36 g/dL Red Cell Distribution Width 12.2 10.0-14.5 % Platelet Count 255 130-400 10^3/uL Mean Platelet Volume 9.2 9.0-12.2 fL Immature Granulocyte % (Auto) 0 % Neutrophils (%) (Auto) 39 L 42-75 % Lymphocytes (%) (Auto) 51 H 12-44 % Monocytes (%) (Auto) 7 0-12 % Eosinophils (%) (Auto) 1 0-10 % Basophils (%) (Auto) 1 0-10 % Neutrophils # (Auto) 2.8 1.8-7.8 10^3/uL Lymphocytes # (Auto) 3.6 1.0-4.0 10^3/uL Monocytes # (Auto) 0.5 0.0-1.0 10^3/uL Eosinophils # (Auto) 0.1 0.0-0.3 10^3/uL Basophils # (Auto) 0.1 0.0-0.1 10^3/uL Immature Granulocyte # (Auto) 0.0 0.0-0.1 10^3/uL Sodium Level 139 135-145 MMOL/L Potassium Level 3.7 3.6-5.0 MMOL/L Chloride Level 104 98-107 MMOL/L Carbon Dioxide Level 22 21-32 MMOL/L Anion Gap 13 5-14 MMOL/L Blood Urea Nitrogen 12 7-18 MG/DL Creatinine 1.30 0.60-1.30 MG/DL Estimat Glomerular Filtration Rate 64 BUN/Creatinine Ratio 9 Glucose Level 105 70-105 MG/DL Calcium Level 9.5 8.5-10.1 MG/DL Corrected Calcium 8.5-10.1 MG/DL Total Bilirubin 0.4 0.1-1.0 MG/DL Aspartate Amino Transf (AST/SGOT) 34 5-34 U/L Alanine Aminotransferase (ALT/SGPT) 52 0-55 U/L Alkaline Phosphatase 83 40-136 U/L Troponin I < 0.30 <0.30 NG/ML Total Protein 7.5 6.4-8.2 GM/DL Albumin 4.6 H 3.2-4.5 GM/DL Lipase 70 8-78 U/L My Orders Orders - DAYNA VICENTE DO Cbc With Automated Diff (06/25/23 23:39) Chest 1 View Ap/Pa Only (06/25/23 23:39) Comprehensive Metabolic Panel (06/25/23 23:39) O2 (06/25/23 23:39) Monitor-Rhythm Ecg Trace Only (06/25/23 23:39) Ed Iv/Invasive Line Start (06/25/23 23:39) Lipase (06/25/23 23:39) Troponin I Fs (06/25/23 23:39) Ketorolac Injection (Ketorolac Injection (06/25/23 23:45) Sucralfate Tablet (Carafate Tablet) (06/25/23 23:45) Lidocaine 2% Viscous 15 Ml (Xylocaine Vi (06/25/23 23:45) Antacid Suspension (Antacid Suspension (06/25/23 23:45) Ekg Tracing (06/25/23 23:37) Medications Given in ED Vital Signs/I&O 06/25/23 06/25/23 06/26/23 23:30 23:30 00:40 Temp 36.4 36.4 Pulse 68 67 Resp 20 18 B/P (MAP) 122/69 (86) 115/83 Pulse Ox 98 98 97 O2 Delivery Nasal Cannula Nasal Cannula Room Air O2 Flow Rate 2.00 2.00 Comment Sinus rhythm with a rate of 67 bpm. Normal intervals. Normal axis. Right bundle branch block. No ST or T wave abnormalities. No ectopy. No STEMI. Departure Communication (Admissions) Patient is hemodynamically stable. Negative troponin. EKG is nonischemic. Chest x-ray is negative on my independent review no evidence of acute cardiopulmonary emergency or other emergent condition at this time. Discharged in stable condition. Impression Primary Impression: Chest pain Qualified Codes: R07.9 - Chest pain, unspecified Disposition: HOME, SELF-CARE Condition: Stable Departure-Patient Inst. Referrals: NO,LOCAL PHYSICIAN (PCP/Family) Primary Care Physician Patient Instructions: Chest Pain (DC) Add. Discharge Instructions: The pain you are having does not seem to be coming from your heart, lungs or another emergent medical condition at this time. Recommend to continue ibuprofen and Tylenol as needed. Follow-up with your primary doctor should your symptoms persist. Return to the emergency department for any severe concerns. DAYNA VICENTE DO Jun 25, 2023 23:41
[2023-06-25] MEDS ORDERED: ANTACID SUSPENSION 30 ML UDC PO ONE (23:45)
[2023-06-25] MEDS ORDERED: LIDOCAINE 2% VISCOUS 15 ML UDC PO ONE (23:45)
[2023-06-25] MEDS ORDERED: KETOROLAC INJ 15 MG/ML VIAL IVP ONE (23:45)
[2023-06-25] MEDS ORDERED: SUCRALFATE 1 GM (CARAFATE) TAB PO ONE (23:45)
[2023-06-25 23:51] LABS: BASOPHILS # (AUTO) 0.1 10^3/uL (0.0-0.1); BASOPHILS % (AUTO) 1 % (0-10); EOSINOPHILS # (AUTO) 0.1 10^3/uL (0.0-0.3); EOSINOPHILS % (AUTO) 1 % (0-10); HEMATOCRIT 43 % (40-54); HEMOGLOBIN 15.1 g/dL (13.3-17.7); LYMPHOCYTES # (AUTO) 3.6 10^3/uL (1.0-4.0); LYMPHOCYTES % (AUTO) 51 % (12-44); MEAN CORPUSCULAR HEMOGLOBIN 30 pg (25-34); MEAN CORPUSCULAR HGB CONC 35 g/dL (32-36); MEAN CORPUSCULAR VOLUME 85 fL (80-99); MEAN PLATELET VOLUME 9.2 fL (9.0-12.2); MONOCYTES # (AUTO) 0.5 10^3/uL (0.0-1.0); MONOCYTES % (AUTO) 7 % (0-12); NEUTROPHILS # (AUTO) 2.8 10^3/uL (1.8-7.8); NEUTROPHILS % (AUTO) 39 % (42-75); PLATELET COUNT 255 10^3/uL (130-400); WHITE BLOOD COUNT 7.1 10^3/uL (4.3-11.0)
[2023-06-26 00:17] LABS: CHLORIDE 104 MMOL/L (98-107); POTASSIUM 3.7 MMOL/L (3.6-5.0); SODIUM 139 MMOL/L (135-145)
[2023-06-26 00:18] LABS: ALANINE AMINOTRANSFERASE 52 U/L (0-55); ALBUMIN 4.6 GM/DL (3.2-4.5); ALKALINE PHOSPHATASE 83 U/L (40-136); BILIRUBIN,TOTAL 0.4 MG/DL (0.1-1.0); BUN/CREATININE RATIO 9; CALCIUM 9.5 MG/DL (8.5-10.1); CARBON DIOXIDE 22 MMOL/L (21-32); GFR ESTIMATED 64; GLUCOSE 105 MG/DL (70-105); LIPASE 70 U/L (8-78); TOTAL PROTEIN 7.5 GM/DL (6.4-8.2)
[2023-06-26 00:40] VITALS: BP 115/83
--- NOTE | 2023-06-26 07:23 | Diagnostic Imaging Report ---
INDICATION: Chest pain Portable upright AP view of the chest is obtained. COMPARISON: No previous study is available for comparison at this time. FINDINGS: Heart size and pulmonary vasculature are within normal limits, and the lungs are clear, bilaterally. IMPRESSION: Unremarkable chest. Dictated by: Dictated on workstation # [id number]
== END 2023-06-26 00:40 | disposition home or self-care (01) ==
LOC: EDUNIT# 23:30 → ER FS 23:33
DX: R07.89 Other chest pain (principal); I45.10 Unspecified right bundle-branch block; Z79.899 Other long term (current) drug therapy
CPT/HCPCS: 36415; 71045; 80053; 83690; 84484; 85025; 93005; 93041

== ENCOUNTER 2023-08-17 16:21 | Emergency (ER) | payer MEDICAID ==
[~2023-08-17] VITALS: Ht 182 cm; Wt 104.0 kg
--- NOTE | 2023-08-17 16:46 | ED General ---
General Chief Complaint: Head/Cervical Problems Stated Complaint: MATA History of Present Illness Date Seen by Provider: Aug 17, 2023 Time Seen by Provider: 16:35 Initial Comments 57-year-old male with PMH of seizure disorder on Keppra, is here with complaints of diarrhea with mucus and a left-sided headache for the past 5 days. Patient has about 5-10 episodes of diarrhea per day. Patient has associated nausea. Denies recent travel, fever and chills, abdominal pain, stiff neck, blurry vision, dizziness, respiratory symptoms. No known sick contacts. Allergies and Home Medications Allergies Coded Allergies: No Known Drug Allergies (Unverified , 07/28/22) Patient Home Medication List Home Medication List Reviewed: Yes Amoxicillin/Potassium Clav (Amox Tr-K Clv 875-125 mg Tab) 875 Mg-125 Mg Tablet, 1 EACH PO BID Prescribed by: MURRAY LEAVITT on 06/18/231940 Hydrocodone/Acetaminophen (Hydrocodone-Acetamin 5-325 mg) 5 Mg-325 Mg Tablet, 1 TAB PO Q6H PRN for PAIN SEVERE Prescribed by: MURRAY LEAVITT on 06/18/231940 Ibuprofen (Ibuprofen) 800 Mg Tablet, 800 MG PO Q8H PRN for PAIN Prescribed by: MURRAY LEAVITT on 06/18/231940 Zonisamide (Zonisamide) 100 Mg Capsule, 100 MG PO DAILY Prescribed by: JYOTI MIRANDA on 05/08/22 0953 Review of Systems Review of Systems Constitutional: no symptoms reported EENTM: no symptoms reported Respiratory: no symptoms reported Cardiovascular: no symptoms reported Gastrointestinal: diarrhea, nausea Past Kkdydnu-Gdpaqi-Srhsoj Hx Patient Social History Tobacco Use?: No Use of E-Cig and/or Vaping dev: No Substance use?: No Alcohol Use?: No Pt feels they are or have been: No Immunizations Up To Date Influenza Vaccine Up-to-Date: No; Not Current First/Initial COVID19 Vaccinat: NOT VACC Second COVID19 Vaccination Vipin: NOT VACC Third COVID19 Vaccination Date: NOT VACC Past Medical History Surgery/Hospitalization HX: SEIZURE DISORDER, R ACL REPAIR Physical Exam Vital Signs Vital Signs - First Documented 08/17/23 16:37 Temp 37.1 Pulse 75 Resp 16 B/P (MAP) 125/80 (95) Pulse Ox 99 O2 Delivery Room Air Capillary Refill : Height, Weight, BMI Height: '" Weight: lbs. oz. kg; 31.00 BMI Method: General Appearance: No Apparent Distress, WD/WN, Anxious HEENT: PERRL/EOMI, TMs Normal, Normal ENT Inspection, Pharynx Normal Neck: Full Range of Motion, Normal Inspection, Non Tender, Supple, Other (Kernig's and Brudzinski sign is negative) Respiratory: Lungs Clear, Normal Breath Sounds Cardiovascular: Regular Rate, Rhythm, No Edema Gastrointestinal: Normal Bowel Sounds, No Organomegaly, Non Tender, Soft Neurologic/Psychiatric: Alert, Oriented x3, No Motor/Sensory Deficits, Normal Mood/Affect, forensic specialist II-XII Norm as Tested Skin: Normal Color Progress/Results/Core Measures Suspected Sepsis SIRS Temperature: Pulse: Respiratory Rate: Blood Pressure / Mean: Results/Orders Lab Results Laboratory Tests Test 08/17/23 17:12 Range/Units Influenza Type A (RT-PCR) Not Detected Not Detecte Influenza Type B (RT-PCR) Not Detected Not Detecte SARS-CoV-2 RNA (RT-PCR) Not Detected Not Detecte My Orders Orders - CHERI SHEFFIELD MD Influenza A And B By Pcr (08/17/23 17:11) Stool Culture (08/17/23 17:11) Fecal Wbc (08/17/23 17:11) Rotavirus Antigen (08/17/23 17:11) Parasite Scrn Stool Giard Cryp (08/17/23 17:11) Parasite Complete Exam Stool (08/17/23 17:11) Covid 19 Inhouse Test (08/17/23 17:11) Ketorolac Injection (Ketorolac Injection (08/17/23 17:15) Ondansetron Injection (Ondansetron Inj (08/17/23 17:15) Diphenhydramine Injection (Diphenhydram (08/17/23 17:15) Antacid Suspension (Antacid Suspension (08/17/23 17:15) Medications Given in ED Current Medications Medications Dose Ordered Sig/[place] Route Start Time Stop Time Status Last Admin Dose Admin Al Hydrox/Mg Hydrox/Simethicone 30 ml ONCE ONCE PO 08/17/23 17:15 08/17/23 17:17 DC 08/17/23 17:21 30 ML Diphenhydramine HCl 25 mg ONCE ONCE IM 10/12/23 17:15 08/17/23 17:17 DC 08/17/23 17:22 25 MG Ketorolac Tromethamine 30 mg ONCE ONCE IM 08/17/23 17:15 08/17/23 17:17 DC 08/17/23 17:22 30 MG Ondansetron HCl 4 mg ONCE ONCE IM 08/17/23 17:15 08/17/23 17:17 DC 08/17/23 17:22 4 MG Vital Signs/I&O 08/17/23 16:37 Temp 37.1 Pulse 75 Resp 16 B/P (MAP) 125/80 (95) Pulse Ox 99 O2 Delivery Room Air Capillary Refill : Progress Note : Progress Note 1. MIGRAINE & GASTROENTERITIS: - COVID test/ Rapid flu test: negative - Stool cultures/ O & P / Giardia/Fecal lekocytes sent to lab - Toradol im/Zofran im/Benadryl im/Maalox oral STAT in ER - Pt will be following up with PCP in [place].Advised to bring in stool study re sults done at [facility] in [place]. -The patient was seen in the ED, and treated appropriately to presentation at a specific point in time. Patient is informed that there is a possibility that disease and illness can evolve and change in acuity rapidly or slowly after patient is discharged from the ER. Precautionary advice given to the patient for immediate return to ER if symptoms worsen or do not resolve, and to seek emergency care sooner rather than later. Pt also advised on the importance of PCP follow up and compliance with management and follow up plan with PCP and/or specialist, as this is part of the management plan. Pt verbally expressed understanding. Departure Impression Primary Impression: Migraine Qualified Codes: G43.909 - Migraine, unspecified, not intractable, without status migrainosus Additional Impression: Gastroenteritis Disposition: 01 HOME, SELF-CARE Condition: Stable Departure-Patient Inst. Referrals: NO,LOCAL PHYSICIAN (PCP/Family) Primary Care Physician Patient Instructions: Migraines (DC), Migraines in adults, Diarrhea, Adult ED, Colitis (DC) Add. Discharge Instructions: - Stool cultures/ O & P / Giardia/Fecal lekocytes sent to lab - Pt will be following up with PCP in [place]. Advised to bring in stool study results done at [facility] in [place]. All discharge instructions reviewed with patient and/or family. Voiced understanding. Scripts Acetaminophen (Tylenol) 325 Mg Capsule 650 MG PO Q4H for Pain for 7 Days, #28 CAP Prov: CHERI SHEFFIELD MD 08/17/23 CHERI SHEFFIELD MD Aug 17, 2023 16:46
[2023-08-17] MEDS: ANTACID SUSPENSION 30 ML UDC PO ONE (17:21)
[2023-08-17] MEDS: KETOROLAC INJ 30 MG/ML VIAL IM ONE (17:22)
[2023-08-17] MEDS: diphenhydrAMINE INJ 50 MG/ML VIAL IM ONE (17:22)
[2023-08-17] MEDS: ONDANSETRON INJECTION 4 MG/2 ML (SDV) IM ONE (17:22)
[2023-08-17] MEDS ORDERED: ACET325C7 PO (17:55)
[2023-08-17] MEDS: ACETAMINOPHEN 500 MG TABLET PO ONE (18:00)
[2023-08-17 18:02] VITALS: BP 125/80
== END 2023-08-17 18:02 | disposition home or self-care (01) ==
LOC: EDUNIT# 16:21 → ER FS 16:22
DX: K52.9 Noninfective gastroenteritis and colitis, unspecified (principal); G43.909 Migraine, unspecified, not intractable, without status migrainosus; G40.909 Epilepsy, unspecified, not intractable, without status epilepticus; Z28.310 Unvaccinated for COVID-19; Z20.822 Contact with and (suspected) exposure to COVID-19; Z79.899 Other long term (current) drug therapy
CPT/HCPCS: 87328; 87636

== ENCOUNTER → 2023-08-18 | Outpatient (CLI) | payer MEDICAID ==
[~2023-08-18] MED LIST changes: +ACET325C7 PO
== END ==
LOC: LABNPT 13:53
PROVIDERS: ATTEND Specialist
DX: K52.9 Noninfective gastroenteritis and colitis, unspecified (principal)
CPT/HCPCS: 87015; 87045; 87046; 87177; 87328; 87329; 87425; 87899; 89055